=== PATIENT | female | born 1950 | race Caucasian/White ===

== ENCOUNTER 2019-04-12 23:08 | Inpatient (IN) | payer MEDICAID ==
[~2019-04-12] VITALS: Ht 165.1 cm; Wt 81.2 kg
[~2019-04-12 23:08] MED LIST: GLIM2TAB2 PO; LACT10SO66 PO; LEVO100T PO; RIFA550T5 PO; SPIR25TA PO
[2019-04-12 23:15] VITALS: BP_SYST 133
--- NOTE | 2019-04-12 23:15 | NUR ---
Patient triaged in [address] and placed in [facility] in ambulance [place]. VSS and patient appears in no acute distress at this time. Accompanied by ems , awaiting available bed, and MD notified of need for MSE.
--- NOTE | 2019-04-13 00:53 | NUR ---
Report given to Cooper ZIMMERMAN.
--- NOTE | 2019-04-13 00:55 | NUR ---
Pt brought in by [facility]. Pt awake, alert, oriented x3. Pt brought in for medical clearance for admission to [facility] after recieving abnormal labs at [facility]. Pt also states that she has R lower flank pain. Pt denies chest pain, nausea, vomiting, diarrhea, shortness of breath. Pt denies any other medical complaint at this time. Pt vss, resting on gurney in no acute distress at this time.
[2019-04-13 01:36] LABS: ALBUMIN 2.3 g/dL (3.4-4.8); CALCIUM 9.1 mg/dL (8.4-11.0); CREATININE 1.34 mg/dL (0.55-1.30); TOTAL BILIRUBIN 4.9 mg/dL (0.0-1.0)
--- NOTE | 2019-04-13 02:00 | NUR ---
Pt resting comfortably on gurney. 2 emt's bedside supervising patient.
[2019-04-13 02:29] LABS: HEMATOCRIT 36.2 % (36-48); HEMOGLOBIN 12.5 g/dL (12.0-16.0); MEAN CORPUSCULAR HEMOGLOBIN 35 pg (27-31); MEAN CORPUSCULAR HGB CONC 35 % (32-36); MEAN CORPUSCULAR VOLUME 103 fL (79.0-98.0); PLATELET COUNT (AUTO) 114 K/uL (130-430); RED BLOOD CELL COUNT(AUTO) 3.53 MIL/uL (4.2-6.2); RED CELL DISTRIBUTION WIDTH 14.6 % (9.0-15.0); WHITE BLOOD COUNT (AUTO) 4.9 K/uL (4.8-10.8)
[2019-04-13 02:51] LABS: ATYPICAL LYMPHOCYTES % 0 % (0-0); BAND % (MANUAL) 0 % (0-6); BASOPHILS % (MANUAL) 1 % (0-2); EOSINOPHILS % (MANUAL) 2 % (0-7); LYMPHOCYTES % (MANUAL) 24 % (20-46); METAMYELOCYTES % 0 % (0-0); MONOCYTES % (MANUAL) 5 % (0-11)
--- NOTE | 2019-04-13 04:18 | NUR ---
Pt moved to ER bed 7.
--- NOTE | 2019-04-13 05:00 | NUR ---
Pt resting in ED bed. No acute distress at this time. Skin signs are jaundiced, pale. MD informed.
[2019-04-13 06:05] LABS: INR 1.2 (0.8-1.2); PROTHROMBIN TIME 12.1 SECS (9.5-12.5)
[2019-04-13] MEDS ORDERED: LACTULOSE 20 GM/30 ML UDC PO ONE (06:30)
--- NOTE | 2019-04-13 09:00 | NUR ---
16 # FR In and Out catheter with use of sterile technique. Immediate return of 100 ml urine noted. Urine sample collected and sent to lab. Pt tolerated procedure . Patient unable to toilet self.
--- NOTE | 2019-04-13 09:15 | NUR ---
Pt A&Ox1, resting at this time, VSS, respirations even and unlabored
--- NOTE | 2019-04-13 09:34 | NUR ---
SPOKE WITH FLOOR REGARDING PATIENT ROOM STATUS, THEY ARE WAITING FOR DISCHARGES BEFORE THEY WILL BE ABLE TO GIVE ROOM ASSIGNMENT.
[2019-04-13 10:19] LABS: BILIRUBIN,URINE 2+ (NEGATIVE); BLOOD, URINE 3+ (NEGATIVE); CLARITY/URINE CLOUDY (CLEAR); COLOR,URINE YELLOW (YELLOW); GLUCOSE,URINE NEGATIVE (NEGATIVE); KETONES,URINE NEGATIVE (NEGATIVE); LEUKOCYTE ESTERASE ,URINE 1+ (NEGATIVE); NITRITE, URINE POSITIVE (NEGATIVE); PH,URINE 5.5 (5.0-8.0); PROTEIN URINE 1+ (NEGATIVE)
[2019-04-13 10:25] LABS: BACTERIA,URINE MODERATE /HPF (None Seen); RBC,URINE >100 /HPF (0-3); WBC,URINE 20-50 /HPF (0-3)
--- NOTE | 2019-04-13 11:00 | NUR ---
Pt resting at this time, respirations even and unlabored, VSS .
[2019-04-13] MEDS ORDERED: LEVO100T9 PO (11:23)
[2019-04-13] MEDS ORDERED: GLIM4TAB PO (11:23)
[2019-04-13] MEDS ORDERED: cefTRIAXone 1 GM in D5W 50 ML IV ONE (11:30)
--- NOTE | 2019-04-13 11:40 | NUR ---
CONSULTATION PAGED REASON FOR CONSULTATION:VARICES WAS CONSULT CALLED?Y PERSON WHO WAS NOTIFIED:KIN CONSULTING PHYSICIAN:SHEKHAR ARIZA (ANGELA YI TONE REGULATOR) GROUNDS AND NURSERY SPECIALIST SPECIALTY:GI GROUNDS AND NURSERY SPECIALIST PHONE NUMBER:[phone] ORDERING PHYSICIAN:LUTHER HALL
[2019-04-13] MEDS ORDERED: cefTRIAXone 1 GM VIAL ONE (11:59)
--- NOTE | 2019-04-13 12:00 | NUR ---
Patient will be admitted to care of Dr Bocanegra. Admitted to Medsurg unit. Will go to room 105B . Belongings list completed. Complete and up to date summary report printed. SBAR report to be given at bedside with opportunity for questions.
[2019-04-13 12:15] VITALS: BP_SYST 145
--- NOTE | 2019-04-13 12:15 | NUR ---
Opening Note Patient received awake but confused, no signs of distress at this time. Patient primarily Kinyarwanda speaking. Patient placed in room 105B while safety precautions in place. Patient with right hand 24 gauge saline-locked at this time. Received report from ED RN. Call light in reach. VSS.
[2019-04-13] MEDS ORDERED: ACETAMINOPHEN 325 MG TABLET PO PRN (12:30)
[2019-04-13] MEDS ORDERED: HYDROcodone/ACETAMIN 5-325 MG TAB (NORCO/ VICODIN) PO PRN (12:30)
[2019-04-13] MEDS ORDERED: ONDANSETRON HCL 4 MG/2 ML VIAL IVP PRN (12:30)
[2019-04-13] MEDS ORDERED: LORazepam 2 MG/ML VIAL IVP PRN (12:30)
[2019-04-13] MEDS ORDERED: HYDROcodone/ACETAMIN 10-325 MG TAB PO PRN (12:30)
--- NOTE | 2019-04-13 12:35 | NUR ---
CONSULTATION PAGED REASON FOR CONSULTATION:UTI WAS CONSULT CALLED?Y PERSON WHO WAS NOTIFIED:REKHA CONSULTING PHYSICIAN:FLORINDA RODRÍGUEZ ( CASH MANAGEMENT ASSOCIATE) DRUG ABUSE TREATMENT SPECIALIST SPECIALTY:ID DRUG ABUSE TREATMENT SPECIALIST PHONE NUMBER:[phone] ORDERING PHYSICIAN:LUTHER HALL
--- NOTE | 2019-04-13 12:38 | NUR ---
CONSULTATION PAGED REASON FOR CONSULTATION:TERE WAS CONSULT CALLED?Y PERSON WHO WAS NOTIFIED:REKHA CONSULTING PHYSICIAN:ZAYDA PETERSON (KT SCHAEFFER BLEACHER PULP) ENERGY CROP FARMER SPECIALTY:NEPHRO ENERGY CROP FARMER PHONE NUMBER:[phone] ORDERING PHYSICIAN:LUTHER HALL
[2019-04-13] MEDS ORDERED: SPIRONOLACTONE 25 MG TABLET (ALDACTONE) PO ONE (12:45)
[2019-04-13] MEDS: NACL 0.9% 1,000 ML IV SCH (13:43)
--- NOTE | 2019-04-13 14:00 | NUR ---
RN Rounds Patient resting at this time, no signs of acute distress noted. Patient does not complain of pain. Safety precautions enforced.
[2019-04-13 16:00] VITALS: BP_SYST 129
[2019-04-13] MEDS: INSULIN REGULAR, HUMAN 100 UNITS/ML, 10 ML VIAL (humuLIN R) SUBCUT PRN ×2 (16:50→20:15)
--- NOTE | 2019-04-13 19:25 | NUR ---
OPENING NOTE RECEIVED REPORT FROM FILIBERTO RN, PATIENT IS RESTING IN BED, PATIENT IS CONFUSED, A/OX1 TO NAME, REORIENTED PATIENT TO PERSON, PLACE, TIME, AND EVENT, EVEN AND UNLABORED BREATHING ON ROOM AIR, NO SIGNS OF ACUTE DISTRESS, IV TO RIGHT AC INTACT AND INFUSING NS @50ML/HR PER MD ORDER, PATENT/BENIGN. SAFETY AND FALL PRECAUTIONS IN PLACE, BED ALARM ON, BED LOCKED AND IN LOWEST POSITION, BED CLOSED TO NURSING STATION, CALL LIGHT WITH PATIENT, WILL CONTINUE TO MONITOR.
--- NOTE | 2019-04-13 19:39 | NUR ---
Closing Notes Patient endorsed to nozzle operator RN using SBAR format. No signs of distress noted.
[2019-04-13 20:00] VITALS: BP_SYST 144
[2019-04-13] MEDS: LACTULOSE 20 GM/30 ML UDC PO SCH (20:09)
--- NOTE | 2019-04-13 20:15 | NUR ---
BLOOD SUGAR PATIENT'S BLOOD SUGAR IS 155. 2 UNITS OF REGULAR INSULIN INDICATED PER INSULIN SLIDING SCALE. EDUCATED PATIENT ON MEDICATION USES AND POTENTIAL SIDE EFFECTS, PATIENT ABLE TO VERBALIZE UNDERSTANDING, ADMINISTERED MEDICATION PER MD ORDER, PATIENT TOLERATED WELL. SAFETY AND FALL PRECAUTIONS IN PLACE, CALL LIGHT WITH PATIENT, WILL CONTINUE TO MONITOR.
--- NOTE | 2019-04-13 22:27 | NUR ---
RN ROUNDS PATIENT IS RESTING IN BED, EYES CLOSED ASLEEP, TOLERATING ROOM AIR, NO SIGNS OF ACUTE DISTRESS, IV TO RIGHT AC INTACT AND INFUSING WELL, PATENT/BENIGN. SAFETY AND FALL PRECAUTIONS IN PLACE, BED CLOSED TO NURSING STATION, CALL LIGHT WITH PATIENT, WILL CONTINUE TO MONITOR.
--- NOTE | 2019-04-13 23:22 | NUR ---
INCONTINENCE CARE/IV RE-INSERTION: Patient had a loose light brown bowel movement. Incontinence care rendered by this RN and Latoya JONES. Patient is clean, dry, and repositioned. Patient removed existing IV. Restarted on right forearm 22g. Successful after 1 attempt. Resumed current IVF of NS @ 50mL/hr. Will observe for any signs of infiltration.
[2019-04-14] VITALS: BP_SYST 129
--- NOTE | 2019-04-14 00:30 | NUR ---
TAP WATER ENEMA ADMINISTERED 500CC TAP WATER ENEMA PER MD ORDER, PATIENT TOLERATED WELL, OUTPUT IS LOOSE LIGHT BROWN STOOL, ASSISTED PATIENT WITH IZABELA CARE, NEW GOWN AND LINENS PROVIDED.
--- NOTE | 2019-04-14 02:02 | NUR ---
RN ROUNDS PATIENT IS RESTING IN BED, EYES CLOSED ASLEEP, TOLERATING ROOM AIR, NO SIGNS OF ACUTE DISTRESS NOTED, IV TO RIGHT FA INFUSING WELL. SAFETY AND FALL PRECAUTIONS IN PLACE, BED CLOSED TO NURSING STATION, CALL LIGHT WITH PATIENT, WILL CONTINUE TO MONITOR.
--- NOTE | 2019-04-14 04:14 | NUR ---
RN ROUNDS PATIENT IS RESTING IN BED, EYES CLOSED, NO SIGNS OF ACUTE DISTRESS, NO COMPLAINTS OF PAIN, TOLERATING ROOM AIR, IN INFUSING WELL. SAFETY AND FALL PRECAUTIONS IN PLACE, BED RAILS UP, BED CLOSE TO NURSING STATION, CALL LIGHT WITH PATIENT, WILL CONTINUE TO MONITOR.
[2019-04-14] MEDS: NACL 0.9% 1,000 ML IV SCH (06:01)
[2019-04-14] MEDS: GLIMEPIRIDE 2 MG TABLET PO SCH (06:02)
[2019-04-14] MEDS: INSULIN REGULAR, HUMAN 100 UNITS/ML, 10 ML VIAL (humuLIN R) SUBCUT PRN ×2 (06:05→11:38)
--- NOTE | 2019-04-14 06:05 | NUR ---
BLOOD SUGAR PATIENT'S BLOOD SUGAR IS 157. 2 UNITS OF REGULAR INSULIN INDICATED PER INSULIN SLIDING SCALE. EDUCATED PATIENT ON MEDICATION USES AND POTENTIAL SIDE EFFECTS, PATIENT ABLE TO VERBALIZE UNDERSTANDING, ADMINISTERED MEDICATION PER MD ORDER, PATIENT TOLERATED WELL. SAFETY AND FALL PRECAUTIONS IN PLACE, CALL LIGHT WITH PATIENT, WILL CONTINUE TO MONITOR.
--- NOTE | 2019-04-14 06:14 | NUR ---
CLOSING NOTE PATIENT IS RESTING IN BED, PATIENT IS CONFUSED, EVEN AND UNLABORED BREATHING ON ROOM AIR, NO SIGNS OF ACUTE DISTRESS, IV TO RIGHT FA INTACT AND INFUSING WELL. SAFETY AND FALL PRECAUTIONS IN PLACE, BED ALARM ON, BED LOCKED AND IN LOWEST POSITION, THREE SIDE RAILS UP, BED CLOSED TO NURSING STATION, CALL LIGHT WITH PATIENT, WILL CONTINUE TO MONITOR.
--- NOTE | 2019-04-14 07:01 | NUR ---
Nutrition Update Azael Scale 15 noted. Pt admitted for Esophageal Varices, Elevated Bilirubin Diet: Clear liquid BMI: 29.8 kg/m2 RD to follow per nutrition care standards.
--- NOTE | 2019-04-14 07:30 | NUR ---
AM ROUNDS: PATIENT SLEEPING DURING ROUNDS. BEDSIDE REPORT GIVEN BY NIGHT NURSE BAN. BED LOCKED AT LOWEST POSITION. BED ALARM ON. NO DISTRESS.
[2019-04-14 07:40] LABS: BASOPHILS % (AUTO) 0.2 % (0.0-2.0); EOSINOPHILS # (AUTO) 0.1 K/uL (0.0-0.4); EOSINOPHILS % (AUTO) 3.1 % (0.0-4.0); HEMOGLOBIN 12.1 g/dL (12.0-16.0); LYMPHOCYTES # (AUTO) 0.8 K/uL (1.0-5.5); LYMPHOCYTES % (AUTO) 17.8 % (20.5-51.5); MEAN CORPUSCULAR HEMOGLOBIN 36 pg (27-31); MEAN CORPUSCULAR HGB CONC 35 % (32-36); MEAN CORPUSCULAR VOLUME 103 fL (79.0-98.0); MONOCYTES # (AUTO) 0.3 K/uL (0.0-1.0); MONOCYTES % (AUTO) 6.8 % (1.7-9.3); NEUTROPHILS # (AUTO) 3.1 K/uL (1.8-7.7); PLATELET COUNT (AUTO) 118 K/uL (130-430); RED BLOOD CELL COUNT(AUTO) 3.41 MIL/uL (4.2-6.2); RED CELL DISTRIBUTION WIDTH 14.4 % (9.0-15.0); WHITE BLOOD COUNT (AUTO) 4.3 K/uL (4.8-10.8)
[2019-04-14 07:44] LABS: CALCIUM 8.3 mg/dL (8.4-11.0); CREATININE 1.29 mg/dL (0.55-1.30); PHOSPHORUS 2.8 mg/dL (2.7-4.5); POTASSIUM 3.9 mmol/L (3.5-5.1)
[2019-04-14 08:08] LABS: NEUTROPHILS % (AUTO) 72.1 % (40.0-70.0)
[2019-04-14 08:18] LABS: C-REACTIVE PROTEIN QUANT 1.9 mg/dL (0-0.5)
[2019-04-14 08:50] LABS: ERYTHROCYTE SEDIMENTATION RATE 86 MM/HR (0-20)
[2019-04-14 08:59] VITALS: BP_SYST 137
[2019-04-14] MEDS: LACTULOSE 20 GM/30 ML UDC PO SCH ×2 (09:01→21:19)
[2019-04-14] MEDS: LEVOTHYROXINE SODIUM 0.1 MG TABLET PO SCH (09:02)
[2019-04-14] MEDS: SPIRONOLACTONE 25 MG TABLET (ALDACTONE) PO SCH (09:02)
--- NOTE | 2019-04-14 09:35 | NUR ---
RN ROUNDS: PATIENT RESTING. NO OTHER PROBLEM.
--- NOTE | 2019-04-14 11:36 | NUR ---
BLOOD SUGAR: BLOOD SUGAR TAKEN,WITH INSULIN COVERAGE GIVEN PER SLIDING SCALE. NO PROBLEM.
[2019-04-14] MEDS: cefTRIAXone 1 GM IVPB PREMIX 50 ML IV SCH (11:39)
[2019-04-14 12:34] VITALS: BP_SYST 136
--- NOTE | 2019-04-14 14:30 | NUR ---
RN ROUNDS: RESTING. NO COMPLAINED MADE. STABLE.
[2019-04-14 16:12] VITALS: BP_SYST 131
--- NOTE | 2019-04-14 16:20 | NUR ---
RN ROUNDS: SLEEPING DURING ROUNDS. NO DISTRESS.
--- NOTE | 2019-04-14 17:18 | NUR ---
BLOOD SUGAR: BLOOD SUGAR TAKEN,NO INSULIN COVERAGE NEEDED THIS TIME PER SLIDING SCALE.
[2019-04-14 17:58] LABS: ALBUMIN 2.2 g/dL (3.4-4.8); BILIRUBIN,DIRECT 3.3 mg/dL (0.0-0.3); TOTAL BILIRUBIN 4.3 mg/dL (0.0-1.0)
--- NOTE | 2019-04-14 18:08 | NUR ---
PAGED PAGED LUTHER HALL AT [phone] SPOKE WITH MIRTHA.
--- NOTE | 2019-04-14 18:16 | NUR ---
NEW ORDER: SPOKE WITH DR Kenyon SALDIVAR ,RELAYED MRSA NARES POSITIVE ,WITH ORDERS TO GIVE BACTROBAN OINTMENT EACH NARES BID.
--- NOTE | 2019-04-14 18:57 | NUR ---
END OF SHIFT: PATIENT WAS TRANSFERRED TO ROOM 103-A DUE TO MRSA NARES POSITIVE.PUT ON CONTACT ISOLATION PRECAUTION ORDERED BY MD. SAFETY MEASURES RENDERED. NO ACUTE DISTRESS.
--- NOTE | 2019-04-14 19:40 | NUR ---
OPENING NOTE RECEIVED REPORT FROM FILIBERTO RN, PATIENT IS RESTING IN BED, PATIENT IS AWAKE AND CONFUSED, A/OX1 TO NAME, REORIENTED PATIENT TO PERSON, PLACE, TIME AND EVENT, EVEN AND UNLABORED BREATHING ON ROOM AIR, NO SIGNS OF ACUTE DISTRESS NOTED, IV TO RIGHT FA INTACT AND INFUSING NS @50ML/HR PER MD ORDER, PATENT/BENIGN. SAFETY AND FALL PRECAUTIONS IN PLACE, ASPIRATION PRECAUTIONS IN PLACE, BED ALARM ON, THREE SIDE RAILS UP, BED LOCKED AND IN LOWEST POSITION, CONTACT ISOLATION PRECAUTIONS IN PLACE FOR MRSA OF NARES, CALL LIGHT WITH PATIENT, WILL CONTINUE TO MONITOR.
[2019-04-14 20:00] VITALS: BP_SYST 138
--- NOTE | 2019-04-14 20:05 | NUR ---
INCONTINENCE CARE Patient voided. Incontinence care rendered by this RN and Latoya JONES. Patient is clean, dry, and repositioned. Patient tolerated well. Safety and fall precautions in place, contact isolation precautions in place, call light with patient, will continue to monitor.
[2019-04-14] MEDS: MUPIROCIN 1 GM OIN.PF.APP NS SCH (21:00)
--- NOTE | 2019-04-14 21:22 | NUR ---
BLOOD SUGAR PATIENT'S BLOOD SUGAR IS 103. NO INSULIN INDICATED PER INSULIN SLIDING SCALE AT THIS TIME. SAFETY AND FALL PRECAUTIONS IN PLACE, CONTACT ISOLATION PRECAUTIONS IN PLACE, CALL LIGHT WITH PATIENT, WILL CONTINUE TO MONITOR.
--- NOTE | 2019-04-14 23:11 | NUR ---
RN ROUNDS PATIENT IS RESTING IN BED, EYES CLOSED ASLEEP, TOLERATING ROOM AIR, NO SIGNS OF ACUTE DISTRESS, IV TO RIGHT FA INFUSING WELL. SAFETY AND FALL PRECAUTIONS IN PLACE, CONTACT ISOLATION PRECAUTIONS IN PLACE, CALL LIGHT WITH PATIENT, WILL CONTINUE TO MONITOR.
[2019-04-15] VITALS: BP_SYST 130
[2019-04-15] MEDS: NACL 0.9% 1,000 ML IV SCH ×2 (01:19→21:30)
--- NOTE | 2019-04-15 01:20 | NUR ---
RN ROUNDS PATIENT IS RESTING IN BED, EYES CLOSED ASLEEP, TOLERATING ROOM AIR, NO SIGNS OF ACUTE DISTRESS, HUNG NEW BAG OF IV FLUIDS PER MD ORDER, IV TO RIGHT FA IS PATENT/BENIGN. SAFETY AND FALL PRECAUTIONS IN PLACE, CONTACT ISOLATION PRECAUTIONS IN PLACE, CALL LIGHT WITH PATIENT, WILL CONTINUE TO MONITOR.
--- NOTE | 2019-04-15 03:32 | NUR ---
RN ROUNDS PATIENT IS RESTING IN BED, EYES CLOSED ASLEEP, NO SIGNS OF ACUTE DISTRESS, TOLERATING ROOM AIR, IV TO RIGHT FA IS PATENT/BENIGN. SAFETY AND FALL PRECAUTIONS IN PLACE, CONTACT ISOLATION PRECAUTIONS IN PLACE, CALL LIGHT WITH PATIENT, WILL CONTINUE TO MONITOR.
--- NOTE | 2019-04-15 05:49 | NUR ---
INCONTINENCE CARE Patient voided. Incontinence care rendered by this RN and Melva ZIMMERMAN. Patient is clean, dry, and repositioned. Patient tolerated well. Safety and fall precautions in place, contact isolation precautions in place, call light with patient, will continue to monitor.
[2019-04-15] MEDS: GLIMEPIRIDE 2 MG TABLET PO SCH (06:04)
--- NOTE | 2019-04-15 06:07 | NUR ---
BLOOD SUGAR PATIENT'S BLOOD SUGAR IS 150. NO INSULIN INDICATED PER INSULIN SLIDING SCALE AT THIS TIME. SAFETY AND FALL PRECAUTIONS IN PLACE, CONTACT ISOLATION PRECAUTIONS IN PLACE, CALL LIGHT WITH PATIENT, WILL CONTINUE TO MONITOR.
--- NOTE | 2019-04-15 06:55 | NUR ---
CLOSING NOTE PATIENT IS RESTING IN BED, PATIENT IS AWAKE AND CONFUSED, EVEN AND UNLABORED BREATHING ON ROOM AIR, NO SIGNS OF ACUTE DISTRESS NOTED, IV TO RIGHT FA INTACT AND INFUSING NS @50ML/HR PER MD ORDER, PATENT/BENIGN. SAFETY AND FALL PRECAUTIONS IN PLACE, ASPIRATION PRECAUTIONS IN PLACE, CONTACT ISOLATION PRECAUTIONS IN PLACE FOR MRSA OF NARES, BED ALARM ON, THREE SIDE RAILS UP, BED LOCKED AND IN LOWEST POSITION, CALL LIGHT WITH PATIENT, WILL ENDORSE CARE TO DAYSHIFT RN.
[2019-04-15 07:34] LABS: BASOPHILS % (AUTO) 0.1 % (0.0-2.0); EOSINOPHILS # (AUTO) 0.1 K/uL (0.0-0.4); EOSINOPHILS % (AUTO) 3.2 % (0.0-4.0); HEMATOCRIT 34.1 % (36-48); HEMOGLOBIN 11.8 g/dL (12.0-16.0); LYMPHOCYTES # (AUTO) 0.8 K/uL (1.0-5.5); LYMPHOCYTES % (AUTO) 18.5 % (20.5-51.5); MEAN CORPUSCULAR HEMOGLOBIN 36 pg (27-31); MEAN CORPUSCULAR HGB CONC 35 % (32-36); MEAN CORPUSCULAR VOLUME 103 fL (79.0-98.0); MONOCYTES # (AUTO) 0.3 K/uL (0.0-1.0); NEUTROPHILS # (AUTO) 3.2 K/uL (1.8-7.7); PLATELET COUNT (AUTO) 122 K/uL (130-430); RED BLOOD CELL COUNT(AUTO) 3.31 MIL/uL (4.2-6.2); RED CELL DISTRIBUTION WIDTH 14.4 % (9.0-15.0); WHITE BLOOD COUNT (AUTO) 4.5 K/uL (4.8-10.8)
[2019-04-15 07:56] LABS: ALBUMIN 2.2 g/dL (3.4-4.8); C-REACTIVE PROTEIN QUANT 1.5 mg/dL (0-0.5); CALCIUM 8.4 mg/dL (8.4-11.0); CREATININE 1.38 mg/dL (0.55-1.30); PHOSPHORUS 2.3 mg/dL (2.7-4.5); POTASSIUM 3.7 mmol/L (3.5-5.1); TOTAL BILIRUBIN 4.3 mg/dL (0.0-1.0)
[2019-04-15 07:58] LABS: NEUTROPHILS % (AUTO) 72.2 % (40.0-70.0)
[2019-04-15 08:00] VITALS: BP_SYST 132
[2019-04-15 09:04] LABS: ERYTHROCYTE SEDIMENTATION RATE 88 MM/HR (0-20)
[2019-04-15] MEDS: LEVOTHYROXINE SODIUM 0.1 MG TABLET PO SCH (10:07)
[2019-04-15] MEDS: SPIRONOLACTONE 25 MG TABLET (ALDACTONE) PO SCH (10:08)
[2019-04-15] MEDS: LACTULOSE 20 GM/30 ML UDC PO SCH ×2 (10:08→21:28)
[2019-04-15] MEDS: MUPIROCIN 1 GM OIN.PF.APP NS SCH ×2 (10:19→21:30)
[2019-04-15 12:37] VITALS: BP_SYST 128
[2019-04-15] MEDS: INSULIN REGULAR, HUMAN 100 UNITS/ML, 10 ML VIAL (humuLIN R) SUBCUT PRN ×2 (14:01→21:46)
[2019-04-15] MEDS: cefTRIAXone 1 GM IVPB PREMIX 50 ML IV SCH (14:02)
[2019-04-15 16:36] VITALS: BP_SYST 122
--- NOTE | 2019-04-15 19:50 | NUR ---
OPENING NOTE RECEIVED REPORT FROM [facility] BREAKER, PATIENT IS RESTING IN BED, EYES CLOSED ASLEEP, EVEN AND UNLABORED BREATHING ON ROOM AIR, NO SIGNS OF ACUTE DISTRESS, IV TO RIGHT FA INTACT AND INFUSING NS @50ML/HR PER MD ORDER, PATENT/BENIGN. SAFETY AND FALL PRECAUTIONS IN PLACE, ASPIRATION PRECAUTIONS IN PLACE, CONTACT ISOLATION PRECAUTIONS IN PLACE FOR MRSA OF NARES, BED ALARM ON, THREE SIDE RAILS UP, BED LOCKED AND IN LOWEST POSITION, CALL LIGHT WITH PATIENT, WILL CONTINUE TO MONITOR.
[2019-04-15 20:00] VITALS: BP_SYST 127
--- NOTE | 2019-04-15 21:32 | NUR ---
BLOOD SUGAR PATIENT'S BLOOD SUGAR IS 245. 4 UNITS OF REGULAR INSULIN INDICATED PER INSULIN SLIDING SCALE. EDUCATED PATIENT ON MEDICATION USES AND POTENTIAL SIDE EFFECTS, PATIENT UNABLE TO VERBALIZE UNDERSTANDING, PATIENT IS CONFUSED, ADMINISTERED MEDICATION PER MD ORDER, PATIENT TOLERATED WELL. SAFETY AND FALL PRECAUTIONS IN PLACE, CALL LIGHT WITH PATIENT, WILL CONTINUE TO MONITOR.
--- NOTE | 2019-04-15 22:40 | NUR ---
RN ROUNDS PATIENT IS RESTING IN BED, AWAKE AND CONFUSED, REORIENTED PATIENT TO PERSON, PLACE TIME AND EVENT, TOLERATING ROOM AIR, NO SIGNS OF ACUTE DISTRESS, IV TO RIGHT FA INFUSING WELL, NO COMPLAINTS OF PAIN. SAFETY AND FALL PRECAUTIONS IN PLACE, CONTACT ISOLATION PRECAUTIONS IN PLACE, CALL LIGHT WITH PATIENT, WILL CONTINUE TO MONITOR.
--- NOTE | 2019-04-16 00:24 | NUR ---
RN ROUNDS PATIENT IS RESTING IN BED, EYES CLOSED ASLEEP, TOLERATING ROOM AIR, IV TO RIGHT FA INFUSING WELL, NO COMPLAINTS OF PAIN, NO SIGNS OF ACUTE DISTRESS. SAFETY AND FALL PRECAUTIONS IN PLACE, CONTACT ISOLATION PRECAUTIONS IN PLACE, CALL LIGHT WITH PATIENT, WILL CONTINUE TO MONITOR.
[2019-04-16 00:27] VITALS: BP_SYST 134
--- NOTE | 2019-04-16 02:37 | NUR ---
RN ROUNDS PATIENT IS RESTING IN BED, AWAKE AND RESTLESS IN BED, NO SIGNS OF ACUTE DISTRESS, TOLERATING ROOM AIR, IV TO RIGHT FA INFUSING WELL, NO COMPLAINTS OF PAIN. SAFETY AND FALL PRECAUTIONS IN PLACE, CONTACT ISOLATION PRECAUTIONS IN PLACE, CALL LIGHT WITH PATIENT, WILL CONTINUE TO MONITOR.
--- NOTE | 2019-04-16 04:20 | NUR ---
INCONTINENCE CARE Patient voided and had a small loose BM. Incontinence care rendered by this RN and Latoya JONES. Patient is clean, dry, and repositioned. Patient tolerated well. Safety and fall precautions in place, contact isolation precautions in place, call light with patient, will continue to monitor.
[2019-04-16 06:06] LABS: HEPATITIS A AB, IgM Negative (Negative); HEPATITIS B CORE AB, IgM Negative (Negative); HEPATITIS B SURFACE AG Negative (Negative)
[2019-04-16] MEDS: GLIMEPIRIDE 2 MG TABLET PO SCH (06:16)
--- NOTE | 2019-04-16 06:18 | NUR ---
BLOOD SUGAR PATIENT'S BLOOD SUGAR IS 159. 2 UNITS OF REGULAR INSULIN INDICATED PER INSULIN SLIDING SCALE. EDUCATED PATIENT ON MEDICATION USES AND POTENTIAL SIDE EFFECTS, PATIENT UNABLE TO VERBALIZE UNDERSTANDING, PATIENT IS CONFUSED, ADMINISTERED MEDICATION PER MD ORDER, PATIENT TOLERATED WELL. SAFETY AND FALL PRECAUTIONS IN PLACE, CALL LIGHT WITH PATIENT, WILL CONTINUE TO MONITOR.
[2019-04-16] MEDS: INSULIN REGULAR, HUMAN 100 UNITS/ML, 10 ML VIAL (humuLIN R) SUBCUT PRN ×3 (06:25→17:49)
--- NOTE | 2019-04-16 07:06 | NUR ---
CLOSING NOTE PATIENT IS RESTING IN BED, EYES CLOSED, EVEN AND UNLABORED BREATHING ON ROOM AIR, NO SIGNS OF ACUTE DISTRESS NOTED, IV TO RIGHT FA INTACT AND INFUSING NS @50ML/HR PER MD ORDER, PATENT/BENIGN. SAFETY AND FALL PRECAUTIONS IN PLACE, CONTACT ISOLATION PRECAUTIONS IN PLACE FOR MRSA OF NARES, BED ALARM ON, THREE SIDE RAILS UP, BED LOCKED AND IN LOWEST POSITION, CALL LIGHT WITH PATIENT, WILL ENDORSE CARE TO DAYSHIFT RN.
--- NOTE | 2019-04-16 07:20 | NUR ---
Patient is awake and alert. Handoff from night team RN, Elena Bach Patient needs met at this time. Plan: assess patient and record vital signs. Jeffry Story RN
[2019-04-16 07:35] LABS: BASOPHILS % (AUTO) 0.2 % (0.0-2.0); EOSINOPHILS # (AUTO) 0.2 K/uL (0.0-0.4); EOSINOPHILS % (AUTO) 3.6 % (0.0-4.0); HEMATOCRIT 34.3 % (36-48); HEMOGLOBIN 11.8 g/dL (12.0-16.0); LYMPHOCYTES # (AUTO) 0.9 K/uL (1.0-5.5); LYMPHOCYTES % (AUTO) 17.1 % (20.5-51.5); MEAN CORPUSCULAR HEMOGLOBIN 36 pg (27-31); MEAN CORPUSCULAR HGB CONC 35 % (32-36); MEAN CORPUSCULAR VOLUME 103 fL (79.0-98.0); MONOCYTES # (AUTO) 0.3 K/uL (0.0-1.0); MONOCYTES % (AUTO) 5.8 % (1.7-9.3); NEUTROPHILS # (AUTO) 3.7 K/uL (1.8-7.7); NEUTROPHILS % (AUTO) 73.3 % (40.0-70.0); PLATELET COUNT (AUTO) 117 K/uL (130-430); RED BLOOD CELL COUNT(AUTO) 3.33 MIL/uL (4.2-6.2); RED CELL DISTRIBUTION WIDTH 14.4 % (9.0-15.0); WHITE BLOOD COUNT (AUTO) 5.1 K/uL (4.8-10.8)
[2019-04-16 07:41] VITALS: BP_SYST 116
[2019-04-16 07:51] LABS: ALBUMIN 2.2 g/dL (3.4-4.8); C-REACTIVE PROTEIN QUANT 1.3 mg/dL (0-0.5); CALCIUM 8.4 mg/dL (8.4-11.0); CREATININE 1.31 mg/dL (0.55-1.30); PHOSPHORUS 2.4 mg/dL (2.7-4.5); POTASSIUM 3.6 mmol/L (3.5-5.1); TOTAL BILIRUBIN 3.9 mg/dL (0.0-1.0)
[2019-04-16 08:22] LABS: ERYTHROCYTE SEDIMENTATION RATE 88 MM/HR (0-20)
[2019-04-16] MEDS: MUPIROCIN 1 GM OIN.PF.APP NS SCH (09:00)
[2019-04-16] MEDS: cefTRIAXone 1 GM IVPB PREMIX 50 ML IV SCH (12:59)
--- NOTE | 2019-04-16 13:00 | NUR ---
Blood glucose monitoring shows 295mg/dl which requires as needed insulin per sliding scale of 6 units regular. Jeffry Story RN
[2019-04-16] MEDS: SPIRONOLACTONE 25 MG TABLET (ALDACTONE) PO SCH (14:06)
[2019-04-16] MEDS: LACTULOSE 20 GM/30 ML UDC PO SCH ×3 (14:07→15:00)
[2019-04-16] MEDS: LEVOTHYROXINE SODIUM 0.1 MG TABLET PO SCH (14:19)
--- NOTE | 2019-04-16 15:00 | NUR ---
Patient reposition. Incontinence care. Attempt straight catheter x2 with assist. Unable to collect urine sample. Patient refuses further procedures to obtain. Jeffry Story RN
[2019-04-16 15:12] VITALS: BP_SYST 110
--- NOTE | 2019-04-16 16:02 | NUR ---
Discharge Planning: DCP faxed pt referral to [facility] (f [phone] p [phone]) JOANNP to follow up Addendum: 04/16/19 at 1655 by Charlotte Rodriguez DP DCP followed up with Vang[facility] at [facility] (f [phone] p [phone]) accepted to [facility]. DCP made charge nurse aware, DCP left copy of packet in case pt discharges.
[2019-04-16] MEDS: NACL 0.9% 1,000 ML IV SCH (19:17)
--- NOTE | 2019-04-16 19:26 | NUR ---
Handoff to night team ELSIE Story RN
--- NOTE | 2019-04-16 19:40 | NUR ---
Paged Dr Geovany Wallis regarding discharge planning. Patient has been accepted into [facility] ([phone] and [phone]) and accepted into [address] Spoke with exchange, and awaiting for call back.
--- NOTE | 2019-04-16 19:53 | NUR ---
Dr Wallis - 2nd Page for DCP Awaiting for call back.
[2019-04-16 20:09] VITALS: BP_SYST 105
[2019-04-16] MEDS ORDERED: SPIR25TA PO (20:22)
[2019-04-16] MEDS ORDERED: ONDA4TAB5 PO (20:23)
[2019-04-16] MEDS ORDERED: MUPI1OIN5 TP (20:24)
--- NOTE | 2019-04-16 20:31 | NUR ---
Called [facility], s/w [place]. ETA [phone]
[2019-04-16 20:42] VITALS: BP_SYST 105
[2019-04-17 09:28] LABS: FERRITIN 665 ng/mL (15-150)
== END 2019-04-16 21:30 | DRG 720 ==
LOC: SED 23:08 → SMU 04-13 08:05
PROVIDERS: ADMIT Preventive Medicine Preventive Medicine/Occupational Environmental Medicine; ATTEND Preventive Medicine Preventive Medicine/Occupational Environmental Medicine
DX: A41.9 Sepsis, unspecified organism (principal); E43 Unspecified severe protein-calorie malnutrition; G93.41 Metabolic encephalopathy; N17.9 Acute kidney failure, unspecified; D61.818 Other pancytopenia; I85.10 Secondary esophageal varices without bleeding; E11.22 Type 2 diabetes mellitus with diabetic chronic kidney disease; N18.3 Chronic kidney disease, stage 3 (moderate); E11.65 Type 2 diabetes mellitus with hyperglycemia; E83.39 Other disorders of phosphorus metabolism; E87.1 Hypo-osmolality and hyponatremia; B96.1 Klebsiella pneumoniae [K. pneumoniae] as the cause of diseases classified elsewhere; E03.9 Hypothyroidism, unspecified; E88.09 Other disorders of plasma-protein metabolism, not elsewhere classified; F03.90 Unspecified dementia, unspecified severity, without behavioral disturbance, psychotic disturbance, mood disturbance, and anxiety; K56.41 Fecal impaction; K74.60 Unspecified cirrhosis of liver; N39.0 Urinary tract infection, site not specified; R74.0 Nonspecific elevation of levels of transaminase and lactic acid dehydrogenase [LDH]; Z22.322 Carrier or suspected carrier of Methicillin resistant Staphylococcus aureus; Z79.899 Other long term (current) drug therapy
CPT/HCPCS: 36415; 74018; 76700-TC; 80048; 80053; 80074; 80076; 81000-TC; 82140-TC; 82728; 82962; 83605; 83735-TC; 84100-TC; 85007; 85025; 85027; 85610-TC; 85651-TC; 86140; 87040-TC; 87081; 87086; 87186-TC; 96365; 99285; J0696; J1815; J7030; J7060